=== PATIENT | male | born 1990 | race Caucasian/White ===

== ENCOUNTER → 2023-08-19 11:42 | Outpatient (BNVA) | payer MEDICAID, SELFPAY | PROVIDERS: Referring Provider Nurse Practitioner Family; Visit Provider Nurse Practitioner Family | DX: B83.9 Helminthiasis, unspecified (principal) | CPT/HCPCS: 87177; 87209 ==

== ENCOUNTER → 2023-08-26 13:58 | Outpatient (BNVA) | payer MEDICAID, SELFPAY | PROVIDERS: Visit Provider Nurse Practitioner | DX: R39.9 Unspecified symptoms and signs involving the genitourinary system (principal) | CPT/HCPCS: 81000; 87086 ==

== ENCOUNTER → 2023-08-27 10:46 | Outpatient (BNVA) | payer MEDICAID, SELFPAY | PROVIDERS: PCP Nurse Practitioner; Referring Provider Nurse Practitioner; Visit Provider Nurse Practitioner | DX: R30.0 Dysuria (principal) | CPT/HCPCS: 74018 ==

== ENCOUNTER → 2023-09-15 12:06 | Outpatient (BNVA) | payer MEDICAID, SELFPAY | PROVIDERS: PCP Nurse Practitioner; Visit Provider Nurse Practitioner Family | DX: R31.9 Hematuria, unspecified (principal); R36.1 Hematospermia | CPT/HCPCS: 84153; 87491; 87591 ==

== ENCOUNTER → 2023-10-10 15:16 | Outpatient (BNVA) | payer MEDICAID, SELFPAY | PROVIDERS: PCP Nurse Practitioner; Visit Provider Nurse Practitioner | DX: A64 Unspecified sexually transmitted disease (principal) | CPT/HCPCS: 81000; 87491; 87591; 87661 ==